=== PATIENT | female | born 1935 | race Caucasian/White ===

== ENCOUNTER → 2023-10-23 | Outpatient (CLI) | payer MEDICARE ==
[2023-10-23 18:17] LABS: FOLATE > 24.0 NG/ML (>5.4); VITAMIN B12 LEVEL 749 PG/ML (211-911)
== END ==
LOC: M PLALAB 15:22
PROVIDERS: ATTEND Psychiatry & Neurology Neurology
DX: E53.8 Deficiency of other specified B group vitamins (principal); R26.81 Unsteadiness on feet